=== PATIENT | male | born 1980 | race Caucasian/White ===

== ENCOUNTER 2020-08-08 16:25 | Outpatient (CLI) | payer OTHER, SELFPAY ==
--- NOTE | ~2020-08-08 | XR_ITS ---
EXAMINATION: XR lumbar spine 2-3V DATE: 08/08/2020 16:50 INDICATION: Chronic low back pain TECHNIQUE: Anteroposterior and lateral views of the lumbar spine, and cone-down lateral view of the l umbosacral junction were obtained. COMPARISON: None. FINDINGS: There is no fracture, dislocation, or subluxation. Mild chronic anterior wedging is seen in the lower thoracic spine and at L1. There has been no significant interval change. The intervertebra l disc spaces are maintained. Small degenerative osteophytes project from the anterior endplates of m ultiple vertebral bodies. IMPRESSION: 1. Mild lumbar spondylosis without acute findings. Reviewed, dictated and finalized at location [facility].
== END 2020-08-08 16:26 | disposition home or self-care (01) ==
LOC: CHSIMG 16:29
PROVIDERS: PCP Physician Assistant; Visit Provider Physician Assistant
DX: M54.5 Low back pain (principal)
CPT/HCPCS: 72100

== ENCOUNTER 2020-11-13 16:48 | Outpatient (CLI) | payer OTHER, SELFPAY ==
--- NOTE | ~2020-11-13 | XR_ITS ---
EXAMINATION: XR knee RT 3V DATE: 11/13/2020 17:20 INDICATION: Right knee pain. TECHNIQUE: 3 views of right knee were obtained. COMPARISON: None. FINDINGS: Bone alignment is normal. No fracture. There is mild osteoarthritis of medial and patellofe moral compartments characterized by tiny marginal osteophytes. No joint space narrowing. No knee join t effusion. IMPRESSION: 1. Mild right knee osteoarthritis. Reviewed, dictated and finalized at location A.
== END 2020-11-13 16:49 | disposition home or self-care (01) ==
LOC: CHSIMG 16:50
PROVIDERS: PCP Physician Assistant; Visit Provider Physician Assistant
DX: M25.561 Pain in right knee (principal); M17.11 Unilateral primary osteoarthritis, right knee
CPT/HCPCS: 73562

== ENCOUNTER 2021-06-05 10:13 | Outpatient (CLI) | payer OTHER, SELFPAY ==
--- NOTE | ~2021-06-05 | CT_ITS ---
EXAMINATION: CT abdomen pelvis wo con DATE: 06/05/2021 10:38 INDICATION: Umbilical and right upper quadrant abdominal pain. Fullness. Nausea. TECHNIQUE: Computed tomography (CT) of the abdomen and pelvis was performed without intravenous contr ast. Automated exposure control and iterative reconstruction technique were employed. Exam dose: 100 9.27 mGy-cm total exam DLP. COMPARISON: None. FINDINGS: Comparison is noted in the left lower lobe including one posterior lateral to 2.3 cm septat ed pneumatocele with several focal areas of soft tissue thickening along the wall. Recommend comparis on with any prior available CT thorax or abdomen examination; if not available,, six-month follow-up CT thorax is recommended. Normal heart size. No pericardial or pleural effusion. The liver, gallbladder, bile ducts, spleen, pancreas, pancreatic duct, and adrenal glands and kidneys are unremarkable. No urinary tract calculus or hydroureteronephrosis. The urinary bladder and prosta te gland and seminal vesicles are unremarkable. Normal caliber of the abdominal aorta. No intraperitoneal or retroperitoneal or pelvic mass lesion or adenopathy or ascites. Normal appendix. There is mild diverticulosis of the left and right colon; no CT evidence of divertic ulitis. No bowel obstruction, bowel wall thickening or pneumatosis. Left inguinal small fat-containing hernia. Small fat-containing umbilical hernia. Diffuse idiopathic skeletal hyperostosis of the lower thoracic spine. Mild degenerative disease of th e lumbar spine. No suspicious osteolytic or osteoblastic lesions are noted. IMPRESSION: Normal appendix Mild diverticulosis of left and right colon Small fat-containing left inguinal hernia Six-month follow-up CT thorax examination is recommended with attention to left lower lobe pneumatoce le with some focal areas of soft tissue wall thickening Reviewed, dictated and finalized at [facility]. Reviewed, dictated and finalized at location A. IMPRESSION: Normal appendix Mild diverticulosis of left and right colon Small fat-containing left inguinal hernia Six-month follow-up CT thorax examination is recommended with attention to left lower lobe pneumatocele with some focal areas of soft tissue wall thickening
== END 2021-06-05 10:14 | disposition home or self-care (01) ==
LOC: CHSIMG 10:15
PROVIDERS: PCP Family Medicine; Visit Provider Physician Assistant
DX: R10.9 Unspecified abdominal pain (principal)
CPT/HCPCS: 74176